=== PATIENT | male | born 1945 | race Caucasian/White ===

== ENCOUNTER 2020-03-16 11:00 | Outpatient (RCR) | payer MEDICARE, SELFPAY ==
--- NOTE | 2020-01-18 16:33 | PTOPEVAL ---
INITIAL PHYSICAL THERAPY EVALUATION and PLAN OF CARE Thank you for referring Srini Duvall to [facility] [place].? Srini is scheduled to be seen for physical therapy? 2x/week for 4 weeks. Please review, sign, date and return this plan of care EPYTON. I agree with and certify that the following plan of care is medically necessary. Referring Physician Date Admitting Provider: Attending Provider: Christopher Garces, Referring Provider: *PT Outpatient Evaluation Start: 01/18/20 14:38 Freq: Status: Active Protocol: Document 01/18/20 14:40 ANDREIA (Rec: 01/18/20 16:15 ANDREIA [id number]) Therapy Assessment Status Assessment Status Assessment Status Evaluation Outpatient Past Medical History Past Medical History Source of Past Medical History Patient Neurological History Hx Neurological Disorders No Significant History Cardiovascular History Hx Coronary Artery Bypass Graft Yes: x5 2006 Hx Hypercholesterolemia Yes Hx Hypertension Yes Hx Myocardial Infarction Yes: 2006 Hx Pacemaker Yes Respiratory History Hx Respiratory Disorders No Significant History Gastrointestinal History Hx Gastrointestinal Disorders No Significant History Genitourinary History Hx Genitourinary Disorders No Significant History Musculoskeletal History Hx Amputation Yes: R Below knee 12/2018 Hx Crutches or Walker Use Yes: walker Query Text:If Yes, Enter Crutches, Walker, or Both in the Comment Endocrine History Hx Diabetes Yes HEENT History Hx Cataracts Yes Evaluation Information 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 Uses electric wheelchair at home - likes being outside. Will mop and sweep floors. Able to get himself dressed. Prior Level of Function Activity Level (Last 3 Months) Hand Dominance Left Medications Home Meds (Include: OTC, RX, Vitamins, insulin, high blood pressure, Herbals, Dose, Route,and Frequency) high choleterol - to bring Query Text:Home Med Entries Will No list at next visit Longer Recall From Past Visits. Home Meds Must Be Re-entered With Each Visit. Home Setting Home Type House Environmental Barriers RaGallo mitchell
--- NOTE | 2020-01-25 14:03 | OTOPEVAL ---
OCCUPATIONAL THERAPY INITIAL EVALUATION/DISCHARGE: 01/25/2020 Thank you for referring Srini Duvall to [facility].? The patient demonstrated UE strength, AROM, coordination WFL and independence with doffing/donning prosthesis. Skilled OT is not indicated at this time. Pt D/C on initial evaluation from skilled OT with independence completing HEP and all materials. Please review, sign, date and return this plan of care PEYTON. I agree with and certify that the following plan of care is medically necessary. Referring Physician Date Attending Provider: Christopher Garces, *OT Outpatient Evaluation/Discharge Summary Start: 01/25/20 09:13 Freq: Status: Active Protocol: Document 01/25/20 13:25 KJL (Rec: 01/25/20 14:03 KJL [id number]) Therapy Assessment Status Assessment Status Assessment Status Evaluation Outpatient Past Medical History Past Medical History Source of Past Medical History Patient Neurological History Hx Neurological Disorders No Significant History Cardiovascular History Hx Coronary Artery Bypass Graft Yes: x5 2006 Hx Hypercholesterolemia Yes Hx Hypertension Yes Hx Myocardial Infarction Yes: 2006 Hx Pacemaker Yes Respiratory History Hx Respiratory Disorders No Significant History Gastrointestinal History Hx Gastrointestinal Disorders No Significant History Genitourinary History Hx Genitourinary Disorders No Significant History Musculoskeletal History Hx Amputation Yes: R Below knee 12/2018 Hx Crutches or Walker Use Yes: walker Query Text:If Yes, Enter Crutches, Walker, or Both in the Comment Endocrine History Hx Diabetes Yes HEENT History Hx Cataracts Yes Evaluation Information Problem Diagnosis BKA December 2018 Additional Evaluation Detail Pt had R LE BKA in December of 2018. Pt is attending Outpatient therapy for Prosthetic training, pt reports received prosthesis about 2 months ago but had a blister on residual end of R LE. Subjective Information Pt reports has been able to Query Text:As Reported By Patient/ use prosthetic at home and is Family able to doff/don prosthetic independently. Prior Level of Function Activity Level (Last 3 Months) Hand Dominance Left Activity of Daily Living Ability Independent Indoor/Home Mobility Independent Community Mobility Independent Functional Cognition (Planning, Shopping Independent , Taking Medications) Cooking Yes Cleaning Yes
--- NOTE | 2020-02-15 14:05 | PTOPEVAL ---
PHYSICAL THERAPY RE-EVALUATION and UPDATED PLAN OF CARE Thank you for referring Srini Duvall to [facility].? Srini is scheduled to continue with physical therapy?1x/week for 4 weeks. He is making good progress towards goals set, but still needs to further upgrade functional activities closer to his prior level of function. Please review, sign, date and return this plan of care PEYTON. I agree with and certify that the following plan of care is medically necessary. Referring Physician Date Admitting Provider: Attending Provider: Christopher Garces, Referring Provider: *PT Outpatient Evaluation Start: 01/18/20 14:38 Freq: Status: Active Protocol: Document 02/15/20 12:30 ANDREIA (Rec: 02/15/20 14:01 ANDREIA [id number]) Therapy Assessment Status Assessment Status Assessment Status Re-evaluation Evaluation Information Problem Subjective Information Srini reports wearing leg Query Text:As Reported By Patient/ every day - no problems. He Family still will take the chair lift going down the stairs rather than walking down them. 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 He was encouraged to begin to stand more with these activities. Pain Assessment Timing of Pain Assessment Timing of Pain Assessment Assessment Self Report Self Report Pain Level 0 Pain Score Pain Score 0: Self Report Balance Assessment Time Up Go (TUG) Assistive Devices None,Cane, Straight Comments Straight cane - 16.37 sec without assistive device - 16. 28 sec Gait Assessment Gait Pattern Assessment Other Gait Observations with small base quad cane, single point cane, without cane - fairly symmetrical gait pattern - occasional decrease L step length - but able to self correct Stair Climbing Assessment Stair Climbing Assessment Stair Climbing Assistive Devices Railings Weight Bearing Status - Left Full Weight Bearing Status - Right Full Number of Steps Climbed (Steps) 4 Number of Repetitions (Repetitions) 3 Technique Alternating Steps,Single Steps Stair Climbing Direction Both Up and Down Stair Climbing Ability Independent Stair Climbing Comments 1st rep - single step 2nd, 3rd - reciprocal stepping - cueing to allow for
--- NOTE | 2020-03-09 11:09 | PCPTNOTE ---
Patient's daughter called & cancelled scheduled appointment this date - message left on answering machine.
--- NOTE | 2020-03-16 12:24 | PTOPEVAL ---
PHYSICAL THERAPY DISCHARGE SUMMARY Thank you for referring Srini Duvall to [facility].? Srini was seen for a total of 13 visits. He has met goals set and is using R below knee prosthesis for usual ADLs and IADLs without difficutly. I agree with Srini's discharge from PT. 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 Hand rail in process for back door. No problems with mobility and activities at home. Doing more walking, not using wheelchair at home to sit in. Pain Assessment Pain Score 0: Self Report Balance Assessment Time Up Go (TUG) Comments Straight cane - 16.75 sec without assistive device - 17. 41 sec Gait Assessment Gait Pattern Assessment Other Gait Observations with straight cane - symmetrical stance/swing phase , step length - occasionally still a little decreased with L LE step ambulation without cane symmetrical stance/swing phase , good balance Able to negotiate over uneven ground with contact guard and straight cane. Able to bead picker item from floor without loss of balance. Able to step over objects of varying height and width without difficulty. Stair Climbing Assessment Stair Climbing Assessment Stair Climbing Assistive Devices Cane,Railings Number of Steps Climbed (Steps) 4 Number of Repetitions (Repetitions) 2 Technique Alternating Steps,Creeping Backward,Single Steps Stair Climbing Ability Independent Ability to Step Over a Curb Independent PT Clinical Summary Amputee Mobility Predictory Assessment Tool - AMPnoPRO 39/ 43 AMPPRO 40/43 increase of 6 pts PSFS - 34/40 Srini continues to progress well. He wears his R b
== END 2020-03-17 15:31 | disposition home or self-care (01) ==
LOC: ANHHIPT 11:00
PROVIDERS: PCP Family Medicine; Visit Provider Family Medicine
DX: Z47.81 Encounter for orthopedic aftercare following surgical amputation (principal); Z89.511 Acquired absence of right leg below knee
CPT/HCPCS: 97110; 97116; 97162; 97165; 97761